=== PATIENT | female | born 1990 | race Caucasian/White ===

== ENCOUNTER 2023-10-31 18:06 | Emergency (ER) | payer SELFPAY ==
[~2023-10-31] VITALS: Ht 172.7 cm; Wt 90.9 kg
[~2023-10-31 18:06] MED LIST: CEFTIN500 MG PO
[2023-10-31 18:21] VITALS: TEMP 97.9
[2023-10-31 19:08] LABS: COLLECTION METHOD CLEAN CATCH
[2023-10-31 19:17] LABS: URINE APPEARANCE CLEAR (CLEAR/HAZY); URINE BLOOD NEGATIVE (NEGATIVE); URINE COLOR YELLOW (YELLOW); URINE GLUCOSE NEGATIVE (NEGATIVE); URINE KETONE NEGATIVE (NEGATIVE); URINE NITRATE NEGATIVE (NEGATIVE); URINE PROTEIN(semi-quant) NEGATIVE (NEGATIVE); URINE UROBILINOGEN 0.2 E.U/dL (0.2-1.0)
[2023-10-31 19:24] LABS: BASO # 0.1 K/mm3 (0.0-0.2); BASO % 0.7 % (0.0-2.0); EOS # 0.1 K/mm3 (0.0-0.7); EOS % 0.8 % (0.0-4.0); GRAN # 3.9 K/mm3 (1.4-6.5); GRAN % 52.5 % (42.2-75.2); HEMATOCRIT 42.1 % (37.0-47.0); HEMOGLOBIN 14.7 g/dl (12.5-16.0); LYMPH # 2.7 K/mm3 (1.2-3.4); LYMPH % 36.4 % (20.0-51.0); MEAN CELL VOLUME 91 fl (80.0-100.0); MEAN CORPUSCULAR HEMOGLOBIN 32 pg (27-31); MEAN CORPUSCULAR HGB CONC 35 g/dl (33.0-37.0); MEAN PLATELET VOLUME 9.7 fl (7.4-10.4); MONO # 0.7 K/mm3 (0.1-0.6); MONO % 9.5 % (1.7-9.3); PLATELET COUNT 239 K/mm3 (130-400); RED BLOOD COUNT 4.62 M/mm3 (4.10-5.30); REDCELL DISTRIBUTION WIDTH-CV 12.6 % (11.5-14.5)
[2023-10-31] MEDS ORDERED: Ondansetron 4 MG/2 ML VIAL IV ONE (19:30)
[2023-10-31] MEDS ORDERED: Ketorolac 30 MG/ML VIAL IV ONE (19:30)
[2023-10-31] MEDS ORDERED: NS 1,000 ML IV ONE (19:30)
[2023-10-31 19:45] LABS: ALBUMIN 3.8 gm/dL (3.5-5.0); BILIRUBIN,TOTAL 0.3 mg/dL (0.2-1.2); C-REACTIVE PROTEIN 0.24 mg/dL (0.00-0.50); CREATININE, serum 0.86 mg/dL (0.57-1.11); POTASSIUM 3.8 mmol/L (3.5-4.5)
[2023-10-31] MEDS ORDERED: NS 50 ML IV SCH (20:22)
[2023-10-31] MEDS ORDERED: Iohexol 300 - 100 ML VIAL IV ONE (20:22)
[2023-10-31] MEDS ORDERED: Home HYDROcodone/Acetaminophen 5/325 MG #4 TABS/PACK PO ONE (21:45)
[2023-10-31 22:05] VITALS: BP 125/85; PULSE 67
== END 2023-10-31 22:05 | disposition home or self-care (01) ==
LOC: COL.ER 18:06
PROVIDERS: Nurse Practitioner
DX: N83.202 Unspecified ovarian cyst, left side (principal); Z79.84 Long term (current) use of oral hypoglycemic drugs
CPT/HCPCS: J1885; J2405; J7030; Q9967

== ENCOUNTER 2024-06-07 11:59 | Outpatient (CLI) | payer BC ==
[~2024-06-07 11:59] MED LIST changes: +GLUCOPHAGE500 MG/TAB PO; +NOVOLIN 70100 UNIT/2 SQ; +NOVOLIN N100 UNIT/1 SQ; +NOVOLOG FLEX100 U/ML SQ; +PRENATAL
[2024-06-07] MEDS ORDERED: LR 1,000 ML IV ONE (12:45)
[2024-06-07 13:00] VITALS: BP 120/75; PULSE 85; TEMP 98
[2024-06-07 13:29] LABS: MEAN CELL VOLUME 92 fl (80.0-100.0); MEAN CORPUSCULAR HEMOGLOBIN 31 pg (27-31); MEAN CORPUSCULAR HGB CONC 33 g/dl (33.0-37.0); MEAN PLATELET VOLUME 9.9 fl (7.4-10.4); PLATELET COUNT 201 K/mm3 (130-400); RED BLOOD COUNT 3.92 M/mm3 (4.10-5.30); REDCELL DISTRIBUTION WIDTH-CV 13.8 % (11.5-14.5)
[2024-06-07 13:32] LABS: HEMATOCRIT 36.2 % (37.0-47.0)
[2024-06-07 13:43] LABS: ALBUMIN 2.6 g/dL (3.5-5.0); BILIRUBIN,TOTAL 0.2 mg/dL (0.2-1.2); CALCIUM 9.5 mg/dL (8.4-10.2); CREATININE, serum 0.77 mg/dL (0.57-1.11); POTASSIUM 3.9 mEq/L (3.5-4.5); TOTAL PROTEIN 6.4 g/dl (6.2-8.1)
--- NOTE | 2024-06-07 14:09 | NUR ---
1400 [facility] UPDATED ON LAB RESULTS, FHTS, CTX PATTERN, IVFB COMPLETE, PT NAPPING. ORDERS TO DISCHARGE PT HOME WITH INSTRUCTIONS TO FOLLOW UP WITH EYE DOCTOR. STATES HE WILL SEND IN A PRESCRIPTION FOR HER MIGRAINE MEDICATION TO GET HER THROUGH THE WEEKEND. PATY BELL.
[2024-06-07 14:15] LABS: COLLECTION METHOD CLEAN CATCH
--- NOTE | 2024-06-07 14:15 | NUR ---
1215 PT ARRIVES ON UNIT COMPLAINING OF MIGRAINE SINCE MONDAY. PT STATES SHE WAS PRESCRIBED A MEDICATION BY HER OB FOR THE MIGRAINES AND WHILE IT DOES HELP ALLEVIATE THE PAIN, IT DOES NOT MAKE IT COMPLETELY GO AWAY. PT STATES SHE WAS SEEN IN OB OFFICE TODAY AND THEY SENT HER OVER. PT DENIES LOF, VB, DFM, STRONG/REGULAR CTX OR ANY OTHER COMPLAINTS. PT DENIES RUQ PAIN, VISUAL DISTURBANCES OR ANY OTHER CONCERNS. RN DISCUSSES POC WITH PT AND PT VERBALIZES UNDERSTANDING.
--- NOTE | 2024-06-07 14:17 | NUR ---
1230 ORDERS FROM [employer] [facility]EMAN TO START IV, GIVE 1 L OF LR, REGLAN, SEND DOWN LABS AND MONITOR FHTS. PATY PEREZVO.
--- NOTE | 2024-06-07 14:17 | NUR ---
1220 MD ON UNIT AND UPDATED BY RN ON PT ARRIVAL, COMPLAINTS, BP X1. MD GOES BEDSIDE TO ASSESS PT.
--- NOTE | 2024-06-07 14:19 | NUR ---
1417 RN DISCUSSES POC WITH PT AND PT VERBALIZES UNDERSTANDING. PT HAS NO QUESTIONS OR CONCERNS AT THIS TIME.
[2024-06-07 14:26] LABS: URINE APPEARANCE CLEAR (CLEAR/HAZY); URINE BLOOD NEGATIVE (NEGATIVE); URINE COLOR YELLOW (YELLOW); URINE GLUCOSE NEGATIVE (NEGATIVE); URINE KETONE NEGATIVE (NEGATIVE); URINE NITRATE NEGATIVE (NEGATIVE); URINE PROTEIN(semi-quant) TRACE (NEGATIVE); URINE UROBILINOGEN 0.2 E.U/dL (0.2-1.0)
--- NOTE | 2024-06-07 14:37 | NUR ---
INTERMITTENT DUE TO AUDIBLE MOVEMENT
--- NOTE | 2024-06-07 15:21 | NUR ---
1429 PT GIVEN BOTH WRITTEN AND VERBAL DISCHARGE INSTRUCTIONS. PT EDUCATED ON SIGNS AND SYMPTOMS THAT WOULD REQUIRE PT TO RETURN AND BE EVALUATED INCLUDING LOF, DFM, STRONG/REGULAR CTX, VB, WHEELER THAT DOES NOT RESOLVE WITH MEDICATION, VISUAL DISTURBANCES, RUQ PAIN, OR ANY OTHER CHANGES/CONCERNS. PT VERBALIZES UNDERSTANDING AND HAS NO QUESTIONS AT THIS TIME.
== END 2024-06-07 14:30 | disposition home or self-care (01) ==
LOC: LDRO 11:59
PROVIDERS: Obstetrics & Gynecology
DX: O26.893 Other specified pregnancy related conditions, third trimester (principal); G43.909 Migraine, unspecified, not intractable, without status migrainosus; Z3A.30 30 weeks gestation of pregnancy
CPT/HCPCS: J2765; J7120